=== PATIENT | female | born 1985 | race Caucasian/White ===

== ENCOUNTER 2020-08-18 09:43 | Inpatient (IN) | payer SELFPAY ==
[2020-08-18 11:19] LABS: BASOPHIL 0.5 % (0-2); EOSINOPHIL 1.2 % (0-5); HCT 39.5 % (37.0-47.0); HGB 13.7 g/dl (12.5-16.0); LYMPHOCYTE 13.7 % (15-48); MCHC 34.7 g/dL (32.0-36.0); MONOCYTE 6.6 % (0-12); MPV 9.8 fL (6.0-9.5); NEUTROPHIL 77.6 % (41-80); NRBC 0; PLT 149 K/uL (150-400); RBC 4.03 M/uL (4.20-5.40); RDW 12.6 % (11.5-14.0); WBC 7.5 K/uL (4.0-10.5)
[2020-08-18 11:38] LABS: BILIRUBIN 2+ mg/dL (NEGATIVE); BLOOD 1+ Ery/uL (NEGATIVE); CLARITY CLEAR (CLEAR); GLUCOSE (U) NORMAL (NORMAL); LEUKOCYTES NEGATIVE Leu/uL (NEGATIVE); NITRITE NEGATIVE (NEGATIVE); PROTEIN 3+ mg/dL (NEGATIVE); SPECIFIC GRAVITY >=1.030 (1.001-1.030)
[2020-08-18 11:39] LABS: COLOR AMBER (YELLOW)
[2020-08-18 11:41] LABS: ALBUMIN 4.2 g/dL (3.4-5.0); ALKALINE PHOSHATASE 286 U/L (46-116); ALT 279 U/L (14-59); AMYLASE 404 U/L (25-115); AST 505 U/L (15-37); BUN 13 mg/dL (7-18); BUN/CREAT RATIO (CALC) 28.3 RATIO; CHLORIDE 93 mmol/L (98-107); CO2 (BICARBONATE) 22 mmol/L (21-32); CREATININE 0.46 mg/dL (0.51-0.95); GLOBULIN (CALCULATION) 4.7 g/dL; GLUCOSE 67 mg/dL (74-106); LIPASE >2250 U/L (73-393); POTASSIUM 3.3 mmol/L (3.5-5.1); TOTAL PROTEIN 8.9 g/dL (6.4-8.2)
[2020-08-18 11:48] LABS: BACTERIA TRACE
[2020-08-18 11:54] LABS: LACTIC ACID 1.4 mmol/L (0.4-1.9)
[2020-08-18 15:34] LABS: CHOLESTEROL 283 mg/dL (<200); HDL 36 mg/dL (40-60); LDL - DIRECT 198 mg/dL (<100); TRIGLYCERIDES 185 mg/dL (<150)
[2020-08-18 16:21] LABS: IRON % SATURATION 22.4 %SAT (20-50)
[2020-08-18 16:57] LABS: FOLIC ACID (SERUM) 7.1 ng/mL (8.6-58.9)
[2020-08-18 17:04] LABS: INR 1.11 (0.9-1.2); PROTHROMBIN TIME 13.6 SECONDS (11.4-13.6); PTT 38.2 SECONDS (22.2-34.7)
[2020-08-19 06:27] LABS: BASOPHIL 0.6 % (0-2); EOSINOPHIL 3.6 % (0-5); HGB 11.9 g/dl (12.5-16.0); MCH 34.1 pg (25.0-31.0); MCV 100.3 fL (78.0-100.0); MPV 9.4 fL (6.0-9.5); NEUTROPHIL 72.6 % (41-80); NRBC 0; PLT 130 K/uL (150-400); RBC 3.49 M/uL (4.20-5.40); RDW 12.8 % (11.5-14.0)
[2020-08-19 07:01] LABS: ALBUMIN 3.3 g/dL (3.4-5.0); ALKALINE PHOSHATASE 236 U/L (46-116); ALT 202 U/L (14-59); AST 327 U/L (15-37); BILIRUBIN - TOTAL 1.6 mg/dL (0.2-1.0); BUN 11 mg/dL (7-18); BUN/CREAT RATIO (CALC) 26.8 RATIO; CHLORIDE 99 mmol/L (98-107); CO2 (BICARBONATE) 23 mmol/L (21-32); CREATININE 0.41 mg/dL (0.51-0.95); GLOBULIN (CALCULATION) 3.8 g/dL; GLUCOSE 81 mg/dL (74-106); LIPASE >2250 U/L (73-393); POTASSIUM 3.8 mmol/L (3.5-5.1); TOTAL PROTEIN 7.1 g/dL (6.4-8.2)
[2020-08-20 05:06] LABS: HBSAG SCREEN Negative (Negative); HEP A AB, IGM Negative (Negative); HEP B CORE AB, IGM Negative (Negative); HEP C VIRUS AB <0.1 (0.0-0.9)
[2020-08-20 06:59] LABS: BASOPHIL 0.7 % (0-2); EOSINOPHIL 3.7 % (0-5); HCT 33.3 % (37.0-47.0); HGB 11.6 g/dl (12.5-16.0); LYMPHOCYTE 12.4 % (15-48); MCH 35.2 pg (25.0-31.0); MCHC 34.8 g/dL (32.0-36.0); MCV 100.9 fL (78.0-100.0); MONOCYTE 6.8 % (0-12); MPV 9.8 fL (6.0-9.5); NEUTROPHIL 76.2 % (41-80); NRBC 0; PLT 116 K/uL (150-400); RDW 12.5 % (11.5-14.0); WBC 4.1 K/uL (4.0-10.5)
[2020-08-20 07:25] LABS: ALBUMIN 3.4 g/dL (3.4-5.0); BILIRUBIN - TOTAL 1.6 mg/dL (0.2-1.0); BUN/CREAT RATIO (CALC) 16.2 RATIO; C-REACTIVE PROTEIN 4.5 mg/dL (<=0.90); CREATININE 0.37 mg/dL (0.51-0.95); GLOBULIN (CALCULATION) 3.3 g/dL; MAGNESIUM 1.9 mg/dL (1.8-2.4); PHOSPHORUS 3.2 mg/dL (2.6-4.7); POTASSIUM 3.4 mmol/L (3.5-5.1); TOTAL PROTEIN 6.7 g/dL (6.4-8.2)
[2020-08-21 05:38] LABS: BASOPHIL 0.5 % (0-2); EOSINOPHIL 2.7 % (0-5); HCT 34.4 % (37.0-47.0); HGB 12.1 g/dl (12.5-16.0); LYMPHOCYTE 13.4 % (15-48); MCH 34.5 pg (25.0-31.0); MCHC 35.2 g/dL (32.0-36.0); MONOCYTE 8.7 % (0-12); MPV 10.1 fL (6.0-9.5); NEUTROPHIL 74.5 % (41-80); NRBC 0; PLT 150 K/uL (150-400); RBC 3.51 M/uL (4.20-5.40); RDW 12.5 % (11.5-14.0)
[2020-08-21 06:06] LABS: ALBUMIN 3.3 g/dL (3.4-5.0); BILIRUBIN - TOTAL 1.1 mg/dL (0.2-1.0); BUN/CREAT RATIO (CALC) 16.1 RATIO; CREATININE 0.31 mg/dL (0.51-0.95); GLOBULIN (CALCULATION) 3.9 g/dL; TOTAL PROTEIN 7.2 g/dL (6.4-8.2)
--- NOTE | 2020-08-21 13:14 | NUR ---
1313 NOTIFIED THAT THE PATIENT WANTS TO BE TRANSFERRED. 1314 DR. CEDENO TO SEE THE PATIENT.
[2020-08-21] MEDS ORDERED: OXYCODONE-ACET1 EAC1 PO ×3 (13:51→15:35)
[2020-08-21] MEDS ORDERED: ONDANSETRON ODT4 MG PO (13:51)
--- NOTE | 2020-08-21 14:22 | NUR ---
1350 WANTS TO SIGN OUT AMA 1355 DR. CEDENO TALKED TO THE PATIENT AND REPORTS THAT SHE STILL WANTS TO LEAVE AMA. 1400 EXPLAINED THE AMA PAPER AND EXPLAINED THAT IF THERE IS A INCREASE IN ABD PAIN, NAUSEA AND VOMITING, SHE SHOULD RETRUN BACK TO THE HOSPITAL. RECHECK BLOOD PRESSURE 170/90 MANUAL "I AM NERVOUS THAT WHY IT IS STILL HIGH." 1405 DR CEDENO NOTIFED THAT THE PATIENT SINED OUT AMA.
== END 2020-08-21 14:10 | disposition left against medical advice (07) | DRG 439 ==
LOC: FER 09:43 → FMS 13:52
PROVIDERS: Emergency Medicine; Nurse Practitioner; ADMIT Internal Medicine
DX: K85.90 Acute pancreatitis without necrosis or infection, unspecified (principal); Z68.1 Body mass index [BMI] 19.9 or less, adult; R63.6 Underweight; Z20.822 Contact with and (suspected) exposure to COVID-19; F10.10 Alcohol abuse, uncomplicated; I10 Essential (primary) hypertension; E87.6 Hypokalemia; E78.00 Pure hypercholesterolemia, unspecified; K76.0 Fatty (change of) liver, not elsewhere classified; Z23 Encounter for immunization
CPT/HCPCS: 36415; 74181; 76700; 80053; 80061; 80074; 81001; 82150; 82607; 82728; 82746; 83540; 83550; 83605; 83690; 83735; 84100; 85025; 85610; 85730; 86140; 90686; C9113; G0008; G0480; J1170; J2270; J2405; J3411; J3475; J7030; J7120; Q9967; U0002